=== PATIENT | male | born 1960 | race Caucasian/White ===

== ENCOUNTER 2018-09-02 18:16 | Emergency (ER) | payer OTHER ==
[~2018-09-02 18:16] MED LIST: AMLO-113 PO; ASPI81TA94 PO; BLOO-1318 MC; BLOO-1337 MC; DIPH0.5D12 IM; GLIP-179 PO; KET10 PO; LANC-1149 MC; LISI-355 PO; LOR5/325 PO; MAGN200T3 PO; METF-450 PO; METF500T4 PO; PIOG30TA71 PO; PNEI IJ; SIMV-49 PO; SITA1TBM4 PO; VAR05PT PO; VARE1TAB3 PO
--- NOTE | 2018-09-02 18:20 | ER Report ---
History and Physical Time Seen By MD: 18:20 HPI/ROS CHIEF COMPLAINT: Foreign body HISTORY OF PRESENT ILLNESS: This is a 57-year-old male who presents to the emergency department, with his for concerns of a foreign body. Patient states he was eating some fried chicken around 11:30 today, felt a piece "get stuck at the bottom of my throat where it goes into my stomach", patient still feels as though there is a foreign body stuck. States it's difficult to belch, every time he does this and feels as though the foreign body moves. Tried carbonated drinks, "they just come erupting back up". No respiratory concerns, he is not drooling, does not appear to be in distress. No fevers or chills, no nausea, no vomiting. No chest pain or shortness breath. REVIEW OF SYSTEMS: Respiratory: No cough, no dyspnea. Cardiovascular: No chest pain, no palpitations. Gastrointestinal: As above. Musculoskeletal: No back pain. Allergies: Coded Allergies: No Known Drug Allergies (Unverified , 08/30/14) Home Meds Active Scripts Magnesium Oxide (Mag-Oxide) 200 Mg Magnesium Tablet, 1 TAB PO QDAY, #90 TAB Prov:ISABELLA MARISCAL MD 04/04/18 Sitagliptin Phos/Metformin Hcl (JANUMET XR 50-1,000 MG TABLET) 1 Each Tbmp.24hr, 1 EACH PO BID, #180 TAB 3 Refills Prov:ISABELLA MARISCAL MD 10/31/17 Simvastatin (SIMVASTATIN) 20 Mg Tablet, 1 TAB PO HS, #90 TAB 3 Refills Prov:ISABELLA MARISCAL MD 10/31/17 Amlodipine Besylate (AMLODIPINE BESYLATE) 10 Mg Tablet, 1 TAB PO QDAY, #90 TAB 3 Refills TAKE ONE TABLET BY MOUTH EVERY DAY Prov:ISABELLA MARISCAL MD 10/31/17 Glipizide (GLIPIZIDE ER) 10 Mg Tab.er.24, 1 TAB PO QDAY, #90 TAB 3 Refills Prov:ISABELLA MARISCAL MD 10/31/17 Lisinopril/Hydrochlorothiazide (LISINOPRIL-HCTZ 20-25 MG TAB) 1 Each Tablet, 1 TAB PO QAM, #90 TAB 3 Refills Prov:ISABELLA MARISCAL MD 10/31/17 One Touch Ultra Test Strips (ONE TOUCH ULTRA TEST STRIPS) 1 Each Strip, 1 EACH MC QDAY, #100 STRIP 6 Refills Use once a day to test Blood Sugar Prov:ISABELLA MARISCAL MD 05/03/17 Lancets (ONE TOUCH LANCETS) 1 Each Each, 1 EACH MC QDAY, #100 3 Refills Use once a day to test Blood Sugar Prov:ISABELLA MARISCAL MD 11/11/16 Blood-Glucose Meter (ONE TOUCH ULTRA 2) 1 Each Kit, 1 EACH MC QDAY, #1 Use once a day to test Blood Sugar Prov:ISABELLA MARISCAL MD 11/11/16 Reported Medications Aspirin (ASPIRIN) 81 Mg Tab.chew, 81 MG PO QDAY, TAB.CHEW TAKE 1 TABLET BY MOUTH EVERY DAY 08/30/14 Past Medical/Surgical History The patient has a past medical and surgical history of hypertension, hypercholesterolemia, generalized aches and pains, cataract surgery, wears glasses, eal-civdvbo-kislbyxvq diabetic, eczema, eye surgery as a child. Reviewed Nurses Notes: Yes Hx Smoking: Yes (CURRENTLY CHEWS 1 CAN DAILY) Smoking Status: Never Smoker Exposure to Second Hand Smoke?: No Hx Alcohol Use: Yes Constitutional Vital Sign - Last 24 Hours 09/02/18 09/02/18 09/02/18 09/02/18 18:21 18:23 18:26 18:31 Temp 98.2 Pulse 86 87 87 Resp 16 B/P (MAP) 143/83 (103) 143/83 Pulse Ox 91 91 91 O2 Delivery Room Air 09/02/18 09/02/18 09/02/18 09/02/18 18:36 18:41 18:46 18:56 Pulse 91 94 95 86 Pulse Ox 90 91 93 89 09/02/18 09/02/18 09/02/18 09/02/18 19:00 19:01 19:06 19:30 Pulse 91 90 B/P (MAP) 114/85 (95) 119/74 (89) Pulse Ox 92 92 Physical Exam General Appearance: The patient is alert, has no immediate need for airway protection and no current signs of toxicity. Eyes: Pupils equal and round no injection. Respiratory: Chest is non tender, lungs are clear to auscultation. Cardiac: regular rate and rhythm. Gastrointestinal: Abdomen is soft and non tender, no masses, bowel sounds normal. Musculoskeletal: Neck: Neck is supple and non tender. Extremities have full range of motion and are non tender. Skin: No rashes or lesions. DIFFERENTIAL DIAGNOSIS: After history and physical exam differential diagnosis was considered for esophageal irritation, esophageal foreign body. Medical Decision Making EKG/Imaging Imaging X-ray: Two-view chest was obtained. I viewed the images myself on the PACS system. My interpretation of the images is: Unable to visualize foreign body. The radiologist interpretation had no clinically significant variation from this interpretation. Location: [facility] - [place] Patient: Howard Herrera : 1960 Visit/Account:[id number] Date of Sevice: 09/02/2018 2 VIEWS CHEST INDICATION: Possible foreign body aspiration. COMPARISON: None available FINDINGS: Cardiomediastinal silhouette and pulmonary vessels within normal limits. There is no focal infiltrate or lobar consolidation. There is no pneumothorax or pleural effusion. No nodule. No radiopaque foreign body. Upper abdomen is unremarkable. No acute bony abnormality. IMPRESSION: 1. No acute cardiopulmonary process. 2. No indication of radiopaque foreign body. Report Dictated By: Wong Vann at 09/02/2018 7:40 PM Report E-Signed By: Wong Vann at 09/02/2018 7:41 PM WSN:[id number] ED Course/Re-evaluation Clinical Indication for ER IV: IV Access ED Course The patient was admitted to room. A history and physical obtained. Differential diagnoses were considered. An IV was started. 1 mg of IV glucagon was given. Two-view chest x-ray was obtained. I reviewed the images on the PACs myself, did not see evidence of a foreign body. After the glucagon was administered, the patient waited for 2030 minutes, did give the patient a glass of water, a he took some sips and most immediately after had to sit up and began to hiccup, then coughed up the water that he had just swallowed. Patient states that he still feels as though there is a foreign body, causing some esophageal irritation, he states this is where it has been all afternoon. I did speak with [facility] general surgeon Dr. Nelson as noted below, I then spoke with gastroenterology and has noted below, the patient will be transferred by POV to [facility]. The patient's did refuse an ambulance transfer. I do however feel that he is stable at this time and will be able to go POV. The patient is stable enough at this time that we can send the patient by private vehicle, his will be driving. The patient is aware that he will be going straight to [facility], check in to the emergency department at which time they will notify GI. The patient and his are in agreement with this plan of care. The patient and his had no other questions or concerns at this time. 09/02/2018 7:36:07 pm I did speak with Dr. Nelson, our general surgeon on-call, unfortunate she is not able to do the therapeutic endoscopy, did speak with gastroenterology on-call, Dr. Yanez, she states she will be able to take the patient to the OR and perform the therapeutic endoscopy. Dr. Yoder the emergency department attending is aware that the patient will be coming over to via private vehicle. He will check into the emergency department triage area at which time they will notify GI. Decision to Disposition Date: Sep 02, 2018 Decision to Disposition Time: 19:35 Depart Departure Latest Vital Signs Vital Signs Date Time Temp Pulse Resp B/P (MAP) Pulse Ox O2 Delivery O2 Flow Rate FiO2 09/02/18 19:30 119/74 (89) 09/02/18 19:06 90 92 09/02/18 18:23 98.2 16 Room Air Impression: Primary Impression: Distal esophageal obstruction due to foreign body Condition: Improved Disposition: XFER TO ACUTE CARE HOSP[facility] ([facility] [place] Referrals: FANI WOOD MD (PCP) Patient Instructions: Esophageal Foreign Body (ED) Additional Instructions: Go straight to the emergency department and check into the triage. They will notify the motorcycle builder and will take U to surgery to remove the foreign body. PHUONG LARA STYLIST APPRENTICE-BC Sep 02, 2018 18:20
[2018-09-02] MEDS ORDERED: GLUCAGON 1 MG KIT IV ONE (18:30)
[2018-09-02 19:30] VITALS: BP 119/74
--- NOTE | 2018-09-02 19:45 | RADIOLOGY IMAGING REPORT ---
FACILITY: [facility] - [place] PATIENT NAME: Howard Herrera : 1960 MR: [id number] V: [id number] EXAM DATE: ORDERING PHYSICIAN: PHUONG LARA TECHNOLOGIST: Location: [facility] [place] Patient: Howard Herrera : 1960 Visit/Account:[id number] Date of Sevice: 09/02/2018 2 VIEWS CHEST INDICATION: Possible foreign body aspiration. COMPARISON: None available FINDINGS: Cardiomediastinal silhouette and pulmonary vessels within normal limits. There is no focal infiltrate or lobar consolidation. There is no pneumothorax or pleural effusion. No nodule. No radiopaque foreign body. Upper abdomen is unremarkable. No acute bony abnormality. IMPRESSION: 1. No acute cardiopulmonary process. 2. No indication of radiopaque foreign body. Report Dictated By: Wong Vann at 09/02/2018 7:40 PM Report E-Signed By: Wong Vann at 09/02/2018 7:41 PM WSN:[id number]
== END 2018-09-02 19:55 | disposition short-term general hospital (02) ==
LOC: ER 18:23
DX: K22.2 Esophageal obstruction (principal)
CPT/HCPCS: 71046; 99283; J1610

== ENCOUNTER → 2018-10-03 | Outpatient (CLI) | payer OTHER ==
[~2018-10-03] MED LIST changes: +DAPA10TA PO; +LISI20TA29 PO
== END ==
LOC: LAB 11:37
PROVIDERS: ATTEND Internal Medicine
DX: E11.49 Type 2 diabetes mellitus with other diabetic neurological complication (principal)
CPT/HCPCS: 81001; 82043